=== PATIENT | male | born 1975 | race Caucasian/White ===

== ENCOUNTER 2017-01-05 15:43 | Emergency (ER) | payer OTHER ==
[2017-01-05] MEDS ORDERED: Sodium Chloride 0.9% 1,000 ML IV ONE (15:46)
--- NOTE | 2017-01-05 15:54 | EDM.PDOC ---
ED HPI GENERAL MEDICAL PROBLEM - General Chief Complaint: Lower Extremity Injury/Pain Stated Complaint: AMBULANCE Time Seen by Provider: 01/05/17 15:46 Source of Information: Reports: Patient, EMS - History of Present Illness INITIAL COMMENTS - FREE TEXT/NARRATIVE: fx HISTORY AND PHYSICAL: History of present illness: Patient was [place], he fell between 2 pieces of equipment falling forward he has an obvious fracture of the right tib-fib resulting [Patient presents with obvious right lower extremity tib-fib fracture with angulation on arrival, he arrives with a work boot on this was removed immediately patient did have good pulses capillary refill under 5 seconds neurovascularly intact at this time. Box splint was placed EMS had provided a total of 200 g of fentanyl prior to arrival Patient is alert pain control no fever nausea vomiting chills sweats no chest pain shortness breath headache dizziness palpitation no bowel or urine symptoms ] Review of systems: As per history of present illness and below otherwise all systems reviewed and negative. Past medical history: As per history of present illness and as reviewed below otherwise noncontributory. Surgical history: As per history of present illness and as reviewed below otherwise noncontributory. Social history: No reported history of drug or alcohol abuse. Family history: As per history of present illness and as reviewed below otherwise noncontributory. Physical exam: HEENT: Atraumatic, normocephalic, pupils reactive, negative for conjunctival pallor or scleral icterus, mucous membranes moist, throat clear, neck supple, nontender, trachea midline. Lungs: Clear to auscultation, breath sounds equal bilaterally, chest nontender. Heart: S1S2, regular, negative for clicks, rubs, or JVD. Abdomen: Soft, nondistended, nontender. Negative for masses or hepatosplenomegaly. Negative for costovertebral tenderness. Pelvis: Stable nontender. Genitourinary: Deferred. Rectal: Deferred. Extremities: Atraumatic, negative for cords or calf pain. Neurovascular unremarkable. Neuro: Awake, alert, oriented. Cranial nerves II through XII unremarkable. Cerebellum unremarkable. Motor and sensory unremarkable throughout. Exam nonfocal. Right lower extremity hip and knee appear unaffected obvious midshaft deformity of the right lower extremity tib-fib with angulation his work boot was removed he does have dorsalis pedis pulse with capillary refill under 5 seconds this no open lesion neuroVascularly intact at this time Diagnostics: []Tib-fib on right 2 views One view chest Therapeutics: []1 L normal saline bolus 200 g of fentanyl provided via EMS pain control Impression: []Right tib-fib fracture neurovascularly intact Definitive disposition and diagnosis as appropriate pending reevaluation and review of above. right leg Pain Score (Numeric/FACES): 5 - Related Data Allergies Allergy/AdvReac Type Severity Reaction Status Date / Time diphenhydramine Allergy Cannot Verified 01/05/17 15:52 [From Benadryl] Remember Penicillins Allergy Cannot Verified 01/05/17 15:52 Remember Home Meds: Home Meds . [No Known Home Meds] 01/05/17 [History] Review of Systems - Review of Systems Review Of Systems: ROS reveals no pertinent complaints other than HPI. ED EXAM, GENERAL - Physical Exam Exam: See Below Course - Vital Signs Last Recorded V/S: Last Vital Signs Temp 36.6 C 01/05/17 15:43 Pulse 53 L 01/05/17 15:43 Resp 20 01/05/17 15:43 BP 159/95 H 01/05/17 15:43 Pulse Ox 99 01/05/17 15:43 - Orders/Labs/Meds Labs: Laboratory Tests 01/05/17 01/05/17 01/05/17 Range/Units 15:58 15:58 16:35 WBC 17.22 H (4.0-11.0) K/uL RBC 4.27 L (4.50-5.90) M/uL Hgb 15.0 (13.0-17.0) g/dL Hct 42.1 (38.0-50.0) % MCV 98.6 H (80.0-98.0) fL MCH 35.1 H (27.0-32.0) pg MCHC 35.6 (31.0-37.0) g/dL RDW Std Deviation 44.7 (28.0-62.0) fl RDW Coeff of [place]leen 12 (11.0-15.0) % Plt Count 322 (150-400) K/uL MPV 9.70 (7.40-12.00) fL Neut % (Auto) 81.8 H (48.0-80.0) % Lymph % (Auto) 8.4 L (16.0-40.0) % [place] % (Auto) 8.7 (0.0-15.0) % Eos % (Auto) 0.8 (0.0-7.0) % Baso % (Auto) 0.3 (0.0-1.5) % Neut # (Auto) 14.1 H (1.4-5.7) K/uL Lymph # (Auto) 1.4 (0.6-2.4) K/uL [place] # (Auto) 1.5 H (0.0-0.8) K/uL Eos # (Auto) 0.1 (0.0-0.7) K/uL Baso # (Auto) 0.1 (0.0-0.1) K/uL Nucleated RBC % 0.0 /100WBC Nucleated RBCs # 0 K/uL Sodium 140 (136-146) mmol/L Potassium 3.8 (3.5-5.1) mmol/L Chloride 111 H (98-110) mmol/L Carbon Dioxide 19 L (21-31) mmol/L BUN 15 (6.0-23.0) mg/dL Creatinine 0.8 (0.6-1.5) mg/dL Est Cr Clr Drug Dosing 109.66 mL/min Estimated GFR (MDRD) > 60.0 ml/min Glucose 103 (60-110) mg/dL Calcium 8.4 L (8.8-10.8) mg/dL Total Bilirubin 0.2 (0.1-1.5) mg/dL AST 22 (5-40) IU/L ALT 19 (8-54) IU/L Alkaline Phosphatase 57 (40-150) Total Protein 6.2 (6.0-8.0) g/dL Albumin 3.6 (3.5-5.0) g/dL Globulin 2.6 (2.0-3.5) g/dL Albumin/Globulin Ratio 1.4 (1.3-2.8) Urine Color YELLOW Urine Appearance CLEAR Urine pH 7.0 (5.0-8.0) Ur Specific [place] 1.020 (1.001-1.035) Urine Protein TRACE (NEGATIVE) mg/dL Urine Glucose (UA) NEGATIVE (NEGATIVE) mg/dL Urine Ketones TRACE H (NEGATIVE) mg/dL Urine Occult Blood SMALL H (NEGATIVE) Urine Nitrite NEGATIVE (NEGATIVE) Urine Bilirubin NEGATIVE (NEGATIVE) Urine Urobilinogen 0.2 (<2.0) EU/dL Ur Leukocyte Esterase SMALL (NEGATIVE) Urine RBC 2-4 (0-2/HPF) Urine WBC 13-15 (0-5/HPF) Ur Epithelial Cells RARE (NONE-FEW) Urine Bacteria FEW (NEGATIVE) Meds: Medications Discontinued Medications Generic Name Dose Route Start Last Admin Trade Name Freq PRN Reason Stop Dose Admin Sodium Chloride 1,000 mls @ 999 mls/hr 01/05/17 15:46 01/05/17 16:00 Normal Saline IV 01/05/17 16:46 999 mls/hr STAT ONE Administration Departure - Departure Time of Disposition: 13:20 Disposition: DC/Tfer to Acute Hospital 02 Condition: Poor Clinical Impression: Tibia/fibula fracture - Discharge Information Referrals: PCP,None [Primary Care Provider] - Forms: ED Department Discharge
[2017-01-05 16:34] LABS: CHLORIDE,CL 111 mmol/L (98-110); SODIUM,NA 140 mmol/L (136-146)
--- NOTE | 2017-01-07 11:24 | CR ---
EXAM DATE: 01/05/17 PATIENT'S AGE: 41 Patient: ADI BRANTLEY Facility: [place], [place] Site . Site : 1975 Study: XRay Chest [id number] 4:11:58 PM Ordering Physician: Sakina Handley Final Report: CHEST 1 VIEW AP INDICATION: Chest pain. IMPRESSION: Normal heart size and vascular pattern. Lungs are clear. No pneumothorax or pleural abnormality. ECG Monitor leads projected over the patient. Dictated by Jean Plunkett MD @ Jan 05 2017 4:22PM (Electronic Signature) Report Signed by Proxy. MICHELE
--- NOTE | 2017-01-07 11:25 | CR ---
EXAM DATE: 01/05/17 PATIENT'S AGE: 41 Patient: ADI BRANTLEY Facility: [place], [place] Site . Site : 1975 Study: XRay Extremity Right tib/fib [id number] 4:12:23 PM Ordering Physician: Sakina Handley Final Report: Right tibia fibula. INDICATION: Injury. IMPRESSION: A single portable view was obtained AP right tibia fibula. There is a transverse comminuted fracture through both the right tibia and right fibula. A single AP view is obtained. No gross displacement or angulation. Dictated by Jean Plunkett MD @ Jan 05 2017 4:23PM (Electronic Signature) Report Signed by Proxy. MICHELE
== END 2017-01-05 17:26 ==
LOC: MW.ED 15:43
DX: S82.451A Displaced comminuted fracture of shaft of right fibula, initial encounter for closed fracture (principal); S82.251A Displaced comminuted fracture of shaft of right tibia, initial encounter for closed fracture; W19.XXXA Unspecified fall, initial encounter; Y92.65 Oil rig as the place of occurrence of the external cause; Y99.0 Civilian activity done for income or pay; Z88.0 Allergy status to penicillin; Z88.8 Allergy status to other drugs, medicaments and biological substances
CPT/HCPCS: 71010; 73590; 80053; 81001; 85025; 99285; J7040; 99284